=== PATIENT | female | born 1940 | race Caucasian/White ===

== ENCOUNTER 2018-08-14 02:57 | Outpatient (CLI) | payer MEDICARE, BC ==
[2018-08-14 15:05] LABS: #Basophils 0.1 thou/uL (0.0-0.2); #Eosinphils 0.4 thou/uL (0.0-0.7); #Lymphocytes 2.1 thou/uL (1.20-3.40); #Monocytes 0.6 thou/uL (0.11-0.59); #Neutrophils 4.4 thou/uL (1.40-6.50); %Basophils 0.9 % (0.0-1.0); %Eosinophils 4.8 % (0.0-10.0); %Lymphocytes 28.4 % (21.0-51.0); %Monocytes 7.4 % (0.0-10.0); %Neutrophils 58.6 % (42.0-75.0); Hemoglobin 12.5 g/dL (12.0-16.0); Mean Corpuscular HGB CONC 33.9 g/dL (32.0-36.0); Mean Corpuscular Hemoglobin 31.4 pg (27.0-31.0); Mean Corpuscular Volume 92.7 fL (78.0-98.0); Mean Platelet Volume 9.3 fL (7.4-10.4); Platelet Count 201 thou/uL (130-400); RBC Distribution Width 12.7 % (11.5-14.5); Red Blood Cell (RBC) Count 3.98 mill/uL (4.20-5.40); White Blood Cell (WBC) Count 7.5 thou/uL (4.8-10.8)
== END 2018-08-14 02:58 | disposition home or self-care (01) ==
LOC: LABBT 02:57
PROVIDERS: ATTEND Orthopaedic Surgery Hand Surgery
DX: Z01.818 Encounter for other preprocedural examination (principal); G56.01 Carpal tunnel syndrome, right upper limb; M65.311 Trigger thumb, right thumb
CPT/HCPCS: 85025; 85652; 93005; 93010

== ENCOUNTER 2018-08-18 07:05 | Day surgery (SDC) | payer MEDICARE, BC ==
[2018-08-14 14:08] VITALS: BMI 27.4
[2018-08-18] MEDS ORDERED: Fentanyl 100 MCG/2 ML VIAL ONE (09:13)
[2018-08-18] MEDS ORDERED: Bupivacaine PF 0.5% 30 ML VIAL ONE (09:22)
[2018-08-18] MEDS ORDERED: Bacitracin Zinc Ointment 30 gm TUBE ONE (09:22)
[2018-08-18] MEDS ORDERED: Betamet Acet/Betamet Na Ph 30 MG/5 ML VIAL ONE (09:54)
[2018-08-18] MEDS ORDERED: Ketorolac Tromethamine 30 MG/ML VIAL ONE (10:52)
[2018-08-18] MEDS ORDERED: PROPOFOL 200 MG/20 ML VIAL ONE (12:08)
[2018-08-18] MEDS ORDERED: ePHEDrine 50 MG/ML VIAL ONE (12:08)
[2018-08-18] MEDS ORDERED: PHENYLEPHRINE-NS 100 MCG/ML 10 ML SYRINGE ONE (12:08)
[2018-08-18] MEDS ORDERED: Dexamethasone 20 MG/5 ML VIAL ONE (12:08)
[2018-08-18] MEDS ORDERED: Ondansetron PF 4 MG/2 ML Vial ONE (12:08)
[2018-08-18] MEDS ORDERED: Lidocaine 1% PF 5 ML VIAL ONE (12:08)
--- NOTE | 2018-08-18 13:57 | OP ---
DATE OF PROCEDURE: 08/18/2018 PREOPERATIVE DIAGNOSES: 1. Right trigger thumb. 2. Right carpal tunnel syndrome. FINDINGS: 1. Very tight transverse carpal ligament with stippling in the median nerve. No flexor tenosynovitis. 2. Very tight A1 racheal with very thick tendon, underneath almost nodular. PROCEDURES PERFORMED: 1. Right trigger thumb release. 2. Right carpal tunnel release. TOURNIQUET TIME: Total 21 minute. INJECTABLE: 1. Celestone 2 mL into the trigger thumb wound and 3 into the median nerve release. 2. 25 mL of 0.5% Marcaine block, 10 given before the surgery, equally between 2 sites, and a total of 15 given 8 in the carpal tunnel and 7 in the trigger thumb site. INDICATION: Failed conservative treatment for diagnosis as above with electrodiagnostic test confirmed carpal tunnel and lack of therapy, injection, and splinting to secure trigger thumb preop. DESCRIPTION OF PROCEDURE: After successful general endotracheal anesthesia by [place] [employer], augmented by the subcutaneous block we gave earlier, the patient had the limb prepped and draped. Time-out was done appropriately. We then had the patient undergo exsanguination of limb, tourniquet was inflated to 250 mmHg pressure. We made a longitudinal Samra type short incision, centered over the A1 racheal, carried through skin and subcutaneous tissue, identified the radial and ulnar digital nerves and protected them. We then made a release of the very thick A1 racheal under direct visualization with a Hubbard blade. We lifted up the tendon. There was no mass or superficial ganglion, and no fraying of the tendon. There was small nodularity and we resected this. We then placed 2 mL Celestone over this tendon and went through 12 cycles of flexion. We then turned attention to the carpal tunnel, where we had outlined the incision in line with the ring finger medial and lateral as far distal as the Aguayo cardinal line as far proximal as the 6 cm distal to the volar wrist flexion crease. We carried this through skin and subcutaneous tissue and followed the palmaris longus ulnar palmaris longus transcarpal ligament, released it from the midline from the midportion distally under direct visualization and spared all digital nerve branches. We then released it from the proximally under direct visualization in combination with last 5 mm were cut with a tenotomy scissor. There was no tension and no further ligament seen. We gave the patient the Celestone over this area, then we closed the thumb wound without complication using interrupted simple pattern and we used interrupted mattress pattern to close the epidermal and dermal layer for the median nerve/carpal tunnel release procedure. The patient had a bulky dressing applied and left the operating room without evidence of anesthetic or operative complication. Job ID: [id number]
== END 2018-08-18 12:46 | disposition home or self-care (01) ==
LOC: SDC 07:05
PROVIDERS: ATTEND Orthopaedic Surgery Hand Surgery
PROC: 01N50ZZ Release Median Nerve, Open Approach (ICD-10-PCS; principal; 2018-08-18)
PROC: 0LN70ZZ Release Right Hand Tendon, Open Approach (ICD-10-PCS; 2018-08-18)
DX: G56.01 Carpal tunnel syndrome, right upper limb (principal); M65.311 Trigger thumb, right thumb; E78.5 Hyperlipidemia, unspecified; I10 Essential (primary) hypertension; E11.40 Type 2 diabetes mellitus with diabetic neuropathy, unspecified; M47.896 Other spondylosis, lumbar region; Z88.2 Allergy status to sulfonamides; Z79.84 Long term (current) use of oral hypoglycemic drugs; Z79.899 Other long term (current) drug therapy
CPT/HCPCS: J0690; J0702; J1100; J1885; J2001; J2405; J2704; J3010; J3490; S0020

== ENCOUNTER 2021-01-29 14:06 | Outpatient (CLI) | payer MEDICARE, BC | END 2021-01-29 14:07 | disposition home or self-care (01) | LOC: SCSRAD 14:06 | PROVIDERS: ATTEND Nurse Practitioner Family | DX: J40 Bronchitis, not specified as acute or chronic (principal) | CPT/HCPCS: 71046 ==